=== PATIENT | male | born 1965 | race Caucasian/White ===

== ENCOUNTER 2018-04-23 20:42 | Inpatient (IN) ==
--- NOTE | 2018-04-23 22:24 | ED ---
HPI General Chief Complaint: Psychiatric Symptoms Stated Complaint: psych eval Time Seen by Provider: 04/23/18 21:15 Source: EMS and police Mode of arrival: other (Police) Limitations: other (Patient is now sound asleep) History of Present Illness MD complaint: Reports suicidal ideation Relieving factors: none Exacerbating factors: other (Illicit drugs) Context: Reports recent drug abuse Associated psychiatric symptoms: Reports suicidal ideation Treatments prior to arrival: Reports none Related Data Home Medications Medication Instructions Recorded Confirmed No Known Home Medications 04/24/18 04/24/18 Unable to Obtain Home Meds 04/24/18 04/24/18 Allergies Allergy/AdvReac Type Severity Reaction Status Date / Time gabapentin [From Neurontin] Allergy Edema, Verified 04/24/18 19:00 Localized Review of Systems ROS: all other systems reviewed are negative [facility] Social History Social History Substance History: Active Abuse Smoking Status: Current every day smoker Tobacco Type: Cigarettes How Often Do You Have a Drink Containing Alcohol: 2 to 4 times a month Exam Const General: cooperative, healthy appearing, comfortable, no acute distress and well developed Orientation: other (The patient was awake and alert on arrival but was sound asleep when I went into see him.) HENMT Head: normal to inspection, normocephalic and atraumatic Eyes Alignment and Position: alignment normal and position abnormal Conjunctivae: conjunctivae normal Sclera: sclerae normal EOM: EOM intact bilaterally Neck Neck: normal visual inspection and full ROM Chest Chest: normal inspection of the chest Resp Effort & Inspection: normal respiratory effort and able to speak in complete sentences Auscultation: clear to auscultation bilaterally Cardio Rate: regular rate Rhythm: regular rhythm GI Inspection: normal to inspection Palpation: soft Back/Spine/Pelvis Cervical Spine: cervical ROM normal Thoracic/Lumbar Spine: thoraco-lumbar ROM normal Skin General: no rashes or lesions noted, turgor normal and dry skin Neuro General: alert, awake, oriented x3, moves all extremities and CN's II-XI intact bilaterally Extrem General: normal to inspection and full ROM Psych Appearance: grossly normal Mental Status: mental status grossly normal Speech and Movement: speech and movement normal Mood: congruent mood Affect: normal affect Attitude: cooperative Thought Process: normal Thought Content: normal Judgment: judgment good Course Reevaluation(s) Reevaluation #1: This patient is still sound asleep. I have tried to arouse him to assess him for suicidal ideation. However, at is not currently possible. Time: 00:40 Reevaluation #2: Patient is reexamined now at 6:30 AM. The patient appears clinically sober. The patient states that he has been binging on methamphetamine. The patient reportedly snorts methamphetamine. He denies any other drugs. He denies any IV drug abuse. He states that he is becoming more paranoid and delusional over the past 1-2 months. He states that people are trying to control him. He alleges that people are putting wires in his body. He states that he would like to see the psychiatrist. He feels that there is something wrong. He does not feel that is related to his substance abuse. Routine laboratory tests will be sent to the lab for medical clearance. We had hoped to lift the patient's Sterling act but unfortunately the patient is unreliable and would be considered unsafe discharge. Patient also persists that if he is discharged he will wind up killing himself. Patient is very vague. Time: 06:41 Initial Documented Vital Signs Temperature 97.9 F 04/23/18 20:58 Pulse Rate 88 04/23/18 20:58 Respiratory Rate 16 04/23/18 20:58 Blood Pressure 103/67 04/23/18 20:58 Pulse Oximetry 98 04/23/18 20:58 Last Documented Vital Signs Temperature 97.6 F 04/25/18 04:53 Pulse Rate 66 04/26/18 04:46 Respiratory Rate 15 04/26/18 04:46 Blood Pressure 161/86 H 04/26/18 04:46 Pulse Oximetry 99 04/26/18 04:46 Medical Decision Making [facility] Narrative Medical decision making narrative: This patient presented to us as a Sterling Act. He has been using drugs tonight. As such, the patient is not appropriate for a Sterling Act at this point. The Sterling Act will be lifted and his suicidal ideation will be reevaluated after he is sober. Medical Screen Exam Complete: Yes Emergency Medical Condition: Yes Differential Diagnosis Differential Diagnosis: My differential diagnosis of Sterling Act includes but is not limited to malingering, acute psychosis, depression with suicidal ideation, homicidal ideation, poor education of the ambulance officer Lab Data Lab results reviewed: Yes I reviewed the patient's lab results. Result diagrams: 04/24/18 07:24 04/24/18 14:00 Lab Results 04/24/18 04/24/18 04/24/18 Range/Units 07:24 07:26 14:00 WBC 6.8 (4.0-11.0) th/mm3 RBC 4.76 (4.50-5.90) mil/mm3 Hgb 14.6 (13.0-17.0) gm/dL Hct 42.9 (39.0-51.0) % MCV 90.2 (80.0-100.0) fL MCH 30.6 (27.0-34.0) pg MCHC 34.0 (32.0-36.0) % RDW 14.4 (11.6-17.2) % Plt Count 236 (150-450) th/mm3 MPV 7.9 (7.0-11.0) fL Neut % (Auto) 45.7 (16.0-70.0) % Lymph % (Auto) 40.7 (9.0-44.0) % [place] % (Auto) 10.9 H (0.0-8.0) % Eos % (Auto) 2.5 (0.0-4.0) % Baso % (Auto) 0.2 (0.0-2.0) % Neut # (Auto) 3.1 (1.8-7.7) th/mm3 Lymph # (Auto) 2.8 (1.0-4.8) th/mm3 [place] # (Auto) 0.7 (0.0-0.9) th/mm3 Eos # (Auto) 0.2 (0.0-0.4) th/mm3 Baso # (Auto) 0.0 (0.0-0.2) th/mm3 WBC Differential . Differential Comment Auto diff final Sodium 142 (136-145) meq/L Potassium 3.6 (3.5-5.1) meq/L Chloride 108 H (98-107) meq/L Carbon Dioxide 27.8 (21.0-32.0) meq/L Anion Gap 6 (5-15) meq/L BUN 13 (7-18) mg/dL Creatinine 1.04 (0.60-1.30) mg/dL Estimated GFR 74 L (>89) mL/min Random Glucose 102 (74-106) mg/dL Calcium 9.1 (8.5-10.1) mg/dL Magnesium 2.2 (1.5-2.5) mg/dL Total Bilirubin 0.2 (0.2-1.0) mg/dL AST 27 (15-37) U/L ALT 40 (12-78) U/L Alkaline Phosphatase 88 (45-117) U/L Total Protein 7.2 (6.4-8.2) g/dL Albumin 3.6 (3.4-5.0) g/dL TSH 2.010 (0.358-3.740) uIU/mL Urine Opiates Screen Neg (Neg) Ur Barbiturates Screen Neg (Neg) Ur Amphetamines Screen Pos H (Neg) U Benzodiazepines Scrn Pos H (Neg) Urine Cocaine Screen Pos H (Neg) U Cannabinoids Screen Neg (Neg) Serum Alcohol Less than 3 (0-5) mg/dL Discharge Plan Discharge Disposition Patient Disposition: 30 Still Patient Discharge Details Diagnosis: Medical clearance for psychiatric admission Physicians Team ED Provider: Wendy Ritter Primary Care Provider: UNKNOWN, Rxs /Orders / Referrals /Forms Prescriptions: No Action Unable to Obtain Home Meds RF: 0 No Known Home Medications RF: 0 Discharge Interventions Interventions: Vital Signs Last Done: 04/26/18 04:46 Status ED Status: Medically Cleared
[2018-04-24] MEDS ORDERED: LORazepam 1 MG Tablet PO ONE ×2 (07:35→15:21)
[2018-04-24 07:37] LABS: Baso % (Auto) 0.2 % (0.0-2.0); Eos # (Auto) 0.2 th/mm3 (0.0-0.4); Eos % (Auto) 2.5 % (0.0-4.0); Hematocrit 42.9 % (39.0-51.0); Hemoglobin 14.6 gm/dL (13.0-17.0); Lymph # (Auto) 2.8 th/mm3 (1.0-4.8); Lymph % (Auto) 40.7 % (9.0-44.0); Mean Corpuscular Hemoglobin 30.6 pg (27.0-34.0); Mean Corpuscular Volume 90.2 fL (80.0-100.0); Mean Platelet Volume 7.9 fL (7.0-11.0); Mono # (Auto) 0.7 th/mm3 (0.0-0.9); Mono % (Auto) 10.9 % (0.0-8.0); Neut # (Auto) 3.1 th/mm3 (1.8-7.7); Neut % (Auto) 45.7 % (16.0-70.0); Platelet Count 236 th/mm3 (150-450); Red Blood Count 4.76 mil/mm3 (4.50-5.90); Red Cell Distribution Width 14.4 % (11.6-17.2); White Blood Count 6.8 th/mm3 (4.0-11.0)
[2018-04-24 07:46] LABS: Amphetamine Screen,Urine Pos (Neg); Barbiturate Screen,Urine Neg (Neg); Cannabinoid Screen,Urine Neg (Neg); Cocaine Screen,Urine Pos (Neg)
[2018-04-24 07:47] LABS: Opiate Screen,Urine Neg (Neg)
[2018-04-24 14:44] LABS: Alkaline Phosphatase 88 U/L (45-117); Total Protein 7.2 g/dL (6.4-8.2)
[2018-04-24 15:21] LABS: Alanine Aminotransferase 40 U/L (12-78); Albumin 3.6 g/dL (3.4-5.0); Anion Gap 6 meq/L (5-15); Aspartate Aminotransferase 27 U/L (15-37); Blood Urea Nitrogen 13 mg/dL (7-18); Calcium 9.1 mg/dL (8.5-10.1); Carbon Dioxide 27.8 meq/L (21.0-32.0); Chloride 108 meq/L (98-107); Glomerular Filtration Rate 74 mL/min (>89); Glucose,Random 102 mg/dL (74-106); Magnesium 2.2 mg/dL (1.5-2.5); Potassium 3.6 meq/L (3.5-5.1); Sodium 142 meq/L (136-145)
[2018-04-24] MEDS ORDERED: Haloperidol Inj 5 MG/ML Ampul IM ONE (18:13)
[2018-04-25] MEDS ORDERED: Haloperidol 5 MG Tablet PO ONE (08:17)
--- NOTE | 2018-04-25 13:31 | P.CONPSY ---
Provisional Diagnosis Admission Date: April 23, 2018 20:42 Hal[place] I.: Polysubstance dependence, substance-induced psychosis, history of anxiety Hal[place] II.: Deferred History of Present Illness Service: ER Primary Care Provider: UNKNOWN History of Present Illness: The patient is a 52-year-old man, who is homeless, but , unemployed, with reported psychiatric history of anxiety, depression , polysubstance dependence including alcohol, methamphetamines, cocaine, he is on Xanax 1 mg 3 times daily prescribed by PCP, 1 previous psychiatric hospitalization due to substance-induced psychosis, he denies previous suicidal attempts, no significant medical history, who was brought to the hospital on the Sterling act due to auditory hallucinations and paranoia after using cocaine and methamphetamines. Chart was reviewed. Of psychiatric evaluation the patient seems to be distressed, stating that he has been seeing things, thinking that people are following him, also seen bugs crawling his skin. The patient reports that he has been having a very difficult situation with the paranoia and visual hallucinations created by the drug use and for this reason he is looking forward to getting a detox/rehab to treat his addiction. The patient denies suicidal and was ideation, he denies visual and auditory hallucinations at this moment. He reports anxiety and bilateral tremors that could be related with withdrawal PMFSH - History History Provided By: Patient - Tobacco History Tobacco Use In Past 30 Days: Yes Smoking Status: Current every day smoker Tobacco Type: Cigarettes - Alcohol History How Often Do You Have a Drink Containing Alcohol: 2 to 4 times a month - Substance Use History Substance History: Active Abuse - Substance Use Type Methamphetamine Status: Active Route Used: Inhalation Frequency: several times/week Last Used: yesterday Reason for Use: Feels Good, Get High Crack/Cocaine Status: Active Route Used: Inhalation Frequency: "occasionally" Reason for Use: Get High Alcohol Status: Active Route Used: By Mouth Frequency: 3-4 beers daily Reason for Use: Calm Down, Feels Good - Immunization History Tetanus Immunization: Unsure Medications and Allergies Allergies Allergy/AdvReac Type Severity Reaction Status Date / Time gabapentin [From Neurontin] Allergy Edema, Verified 04/24/18 19:00 Localized Home Medications Medication Instructions Recorded Confirmed Type No Known Home Medications 04/24/18 04/24/18 History Unable to Obtain Home Meds 04/24/18 04/24/18 History Exam Vital signs: Vital Signs 04/24/18 18:14 04/24/18 22:31 04/25/18 04:53 Temperature 97.8 F 98.4 F 97.6 F Pulse Rate 77 68 62 Respiratory Rate 18 18 14 Blood Pressure 144/101 H 149/79 H 134/82 Pulse Oximetry 100 96 95 Mental Status Examination Appearance: Appropriate Consciousness: Alert Orientation: x4 Motor Activity: Normal gait Speech: Unremarkable Language: Adequate Fund of Knowledge: Adequate Attention and Concentration: Adequate Memory: Unremarkable Mood: Appropriate Affect: Appropriate Thought Process & Associations: Intact Thought Content: Appropriate Hallucination Type: None Delusion Type: None Suicidal Ideation: No Suicidal Plan: No Suicidal Intention: No Homicidal Ideation: No Homicidal Plan: No Homicidal Intention: No Insight: Adequate Judgment: Adequate Assessment and Plan - Plan Plan: To be transferred to [facility]. Justification for Continued Inpatient Stay: Patient presents with symptoms of psychosis, paranoia, visual hallucinations, formication in the context of daily use of methamphetamines, alcohol and cocaine. Patient also reports bilateral tremors, anxiety, discomfort that could be related with withdrawal of alcohol and Xanax. The patient will be admitted in [facility], for detox and rehabilitation, he is #2 in the least. Will order CIWA. Will order Haldol 5 mg and Ativan 2 mg now.
[2018-04-25] MEDS ORDERED: Haloperidol Inj 5 MG/ML Ampul IM PRN (16:39)
[2018-04-25] MEDS: LORazepam 1 MG Tablet PO PRN (16:56)
[2018-04-25] MEDS: Haloperidol 5 MG Tablet PO PRN (16:57)
[2018-04-26] MEDS ORDERED: Acetaminophen 325 MG Tablet PO PRN (08:11)
[2018-04-26] MEDS ORDERED: Bisacodyl 10 MG Supp RECTAL PRN (08:11)
[2018-04-26] MEDS ORDERED: Aluminum/Magnesium/Simethacone Susp 30 ML UDC PO PRN (08:11)
[2018-04-26] MEDS: Haloperidol 5 MG Tablet PO PRN (08:22)
--- NOTE | 2018-04-26 08:53 | ED ---
HPI General Chief complaint: Psychiatric Symptoms Stated complaint: psych eval Time Seen by Provider: 04/23/18 21:15 Source: patient, EMS and police Mode of arrival: ambulatory (Police) Limitations: no limitations and other (Patient is now sound asleep) History of Present Illness HPI Narrative: This is a 52-year-old male that is here in the psychiatry unit and is being admitted to psychiatry. He has already been seen and previously evaluated by an alternate provider and was medically cleared for psychiatry. The patient is complaining of right hand pain. He did previously have an IV in his right hand,. He denies any injury. Denies paresthesias, loss of sensation , decreased range of motion, decreased strength to the affected hand. Says he noted swelling of his hand after the IV and is only gotten worse. This morning he woke up with the pain. No treatments tried. Constantly aggravated. No known relieving factors. Symptoms are mild in severity. Related Data Home Medications Medication Instructions Recorded Confirmed No Known Home Medications 04/24/18 04/24/18 Unable to Obtain Home Meds 04/24/18 04/24/18 Allergies Allergy/AdvReac Type Severity Reaction Status Date / Time gabapentin [From Neurontin] Allergy Edema, Verified 04/24/18 19:00 Localized Review of Systems ROS: all other systems reviewed are negative PMFSH Social History Social History Substance History: Active Abuse Smoking Status: Current every day smoker Tobacco Type: Cigarettes How Often Do You Have a Drink Containing Alcohol: 2 to 4 times a month Substance Abuse Detail Methamphetamine: Substance Use Status: Active Route Used Substance Abuse: Inhalation Substance Frequency: several times/week Last Used: yesterday Reason for Use: Feels Good and Get High Crack/Cocaine: Substance Use Status: Active Route Used Substance Abuse: Inhalation Substance Frequency: "occasionally" Reason for Use: Get High Alcohol: Substance Use Status: Active Route Used Substance Abuse: By Mouth Substance Frequency: 3-4 beers daily Reason for Use: Calm Down and Feels Good Immunization History Tetanus Immunization: Unsure Exam Narrative Exam Narrative: GENERAL: Well-nourished, well-developed male patient, in no acute distress SKIN: Warm and dry. Multiple small scabbed wounds noted to bilateral upper extremities; I was told by the nurse the patient continues to pick his skin; no signs of infection noted. No cellulitic process noted. HEAD: Atraumatic. Normocephalic. EYES: Pupils equal and round. No scleral icterus. No injection or drainage. ENT: Mucosa pink and moist. Airway patent. NECK: Trachea midline. CARDIOVASCULAR: Regular rate. RESPIRATORY: No accessory muscle use. GASTROINTESTINAL: Obese. MUSCULOSKELETAL: Right hand is mildly edematous and without erythema, ecchymosis; with tenderness on palpation to the metacarpal region; no signs of infection; all fingers are pink and warm and with good cap refill and sensory intact; 2+ radial pulse; all fingers with full flexion and extension. Right upper extremity is supple and non-tense with 2+ radial pulse and sensory intact without erythema or edema. No obvious deformities. No clubbing. No cyanosis. NEUROLOGICAL: Awake and alert. Oriented 3. No obvious cranial nerve deficits. Motor grossly within normal limits. Normal speech. PSYCHIATRIC: Appropriate mood and affect; insight and judgment normal. Course Initial Documented Vital Signs Temperature 97.9 F 04/23/18 20:58 Pulse Rate 88 04/23/18 20:58 Respiratory Rate 16 04/23/18 20:58 Blood Pressure 103/67 04/23/18 20:58 Pulse Oximetry 98 04/23/18 20:58 Last Documented Vital Signs Temperature 97.6 F 04/25/18 04:53 Pulse Rate 66 04/26/18 04:46 Respiratory Rate 15 04/26/18 04:46 Blood Pressure 161/86 H 04/26/18 04:46 Pulse Oximetry 99 04/26/18 04:46 Medical Decision Making [facility] Narrative Medical decision making narrative: This is a patient in the psychiatry unit that is being admitted to psychiatry. He is complaining of right hand pain. No injury. He did previously have an IV in the right hand and I am suspecting that it is just inflammation post IV, possible infiltration. There are no signs of infection. No cellulitic process. Patient is demanding an x-ray although I explained that I did not feel an x-ray was necessary secondary to no injury, but he insists. I will x-ray the hand per the patient's request and to rule out any acute findings. Ibuprofen and right hand x-ray ordered. Right hand x-ray concludes: Dorsal soft tissue edema without evidence of fracture or foreign body. Findings are concerning for a tenosynovitis or possible cellulitis. On exam I do not feel that there was any infectious process but with findings of concern for tenosynovitis and possible cellulitis on x-ray I will treat the patient with antibiotics. Bactrim and Keflex ordered. I called and spoke with the psychiatric nurse, because the patient has already been admitted, and informed the nurse caring for the patient at this time that the patient needed to be sent home with prescriptions if discharged prior to 10 days of antibiotic therapy. Medical Screen Exam Complete: Yes Emergency Medical Condition: Yes Differential Diagnosis Differential Diagnosis: Soft tissue inflammation, cellulitis, nonspecific hand pain Lab Data Result diagrams: 04/24/18 07:24 04/24/18 14:00 Lab Results 04/24/18 04/24/18 04/24/18 Range/Units 07:24 07:26 14:00 WBC 6.8 (4.0-11.0) th/mm3 RBC 4.76 (4.50-5.90) mil/mm3 Hgb 14.6 (13.0-17.0) gm/dL Hct 42.9 (39.0-51.0) % MCV 90.2 (80.0-100.0) fL MCH 30.6 (27.0-34.0) pg MCHC 34.0 (32.0-36.0) % RDW 14.4 (11.6-17.2) % Plt Count 236 (150-450) th/mm3 MPV 7.9 (7.0-11.0) fL Neut % (Auto) 45.7 (16.0-70.0) % Lymph % (Auto) 40.7 (9.0-44.0) % [place] % (Auto) 10.9 H (0.0-8.0) % Eos % (Auto) 2.5 (0.0-4.0) % Baso % (Auto) 0.2 (0.0-2.0) % Neut # (Auto) 3.1 (1.8-7.7) th/mm3 Lymph # (Auto) 2.8 (1.0-4.8) th/mm3 [place] # (Auto) 0.7 (0.0-0.9) th/mm3 Eos # (Auto) 0.2 (0.0-0.4) th/mm3 Baso # (Auto) 0.0 (0.0-0.2) th/mm3 WBC Differential . Differential Comment Auto diff final Sodium 142 (136-145) meq/L Potassium 3.6 (3.5-5.1) meq/L Chloride 108 H (98-107) meq/L Carbon Dioxide 27.8 (21.0-32.0) meq/L Anion Gap 6 (5-15) meq/L BUN 13 (7-18) mg/dL Creatinine 1.04 (0.60-1.30) mg/dL Estimated GFR 74 L (>89) mL/min Random Glucose 102 (74-106) mg/dL Calcium 9.1 (8.5-10.1) mg/dL Magnesium 2.2 (1.5-2.5) mg/dL Total Bilirubin 0.2 (0.2-1.0) mg/dL AST 27 (15-37) U/L ALT 40 (12-78) U/L Alkaline Phosphatase 88 (45-117) U/L Total Protein 7.2 (6.4-8.2) g/dL Albumin 3.6 (3.4-5.0) g/dL TSH 2.010 (0.358-3.740) uIU/mL Urine Opiates Screen Neg (Neg) Ur Barbiturates Screen Neg (Neg) Ur Amphetamines Screen Pos H (Neg) U Benzodiazepines Scrn Pos H (Neg) Urine Cocaine Screen Pos H (Neg) U Cannabinoids Screen Neg (Neg) Serum Alcohol Less than 3 (0-5) mg/dL Imaging Data Radiologist's impression: Hand X-Ray 04/26/18 08:47 CONCLUSION: Dorsal soft tissue edema without evidence of fracture or foreign body. Findings are concerning for a tenosynovitis or possible cellulitis. Discharge Plan Discharge Disposition Patient Disposition: 30 Still Patient Discharge Details Diagnosis: Medical clearance for psychiatric admission, Hand pain, right, Swelling of right hand Physicians Team ED Provider: Wendy Ritter Primary Care Provider: UNKNOWN, Attending Provider: Matthew Ayala Discharge Interventions Interventions: ED Discharge Assessment Last Done: 04/26/18 10:25 Vital Signs Last Done: 04/26/18 04:46 Status ED Status: Left Department Discharge Information Discharge Date/Time: 04/26/18 10:30
[2018-04-26] MEDS: Haloperidol 5 MG Tablet PO SCH ×2 (09:12→22:46)
[2018-04-26] MEDS: LORazepam 1 MG Tablet PO PRN ×3 (09:27→20:40)
--- NOTE | 2018-04-26 11:52 | XR ---
EXAM DATE: 04/26/2018 9:34 AM EST AGE/SEX: 52 years / Male INDICATIONS: Right hand pain and swelling with no known injury. CLINICAL DATA: This is the patient's initial encounter. Patient reports that signs and symptoms have been present for 3 days and indicates a pain score of 8/10. MEDICAL/SURGICAL HISTORY: . Previous right wrist fracture. None. COMPARISON: No prior exams available for comparison. FINDINGS: 3 views of the right hand demonstrate an old healed fracture deformity involving the distal radius an d nonunited ulnar styloid fracture. The osseous structures are otherwise intact with normal alignment . Soft tissues are significant for dorsal soft tissue edema overlying the level of the metacarpals. N o evidence of radiopaque foreign body. CONCLUSION: Dorsal soft tissue edema without evidence of fracture or foreign body. Findings are concerning for a tenosynovitis or possible cellulitis. Electronically signed by: Lucita Calabrese MD 04/26/2018 11:51 AM EST
--- NOTE | 2018-04-26 11:54 | P.PNPSY ---
Subjective Remarks: Patient is a 52-year-old man, homeless, but , unemployed, with reported psychiatric history of anxiety, depression, polysubstance dependence including alcohol, methamphetamines, cocaine, he is on Xanax 1 mg 3 times daily prescribed by PCP, 1 previous psychiatric hospitalization due to substance-induced psychosis, he denies previous suicidal attempts, no significant medical history, who was brought to the hospital on the [place] act due to auditory hallucinations and paranoia after using cocaine and methamphetamines. As per chart and initial psychiatric evaluation in the ED as noted by Dr. Rivera: Patient seems to be distressed, stating that he has been seeing things, thinking that people are following him, also seen bugs crawling his skin. The patient reports that he has been having a very difficult situation with the paranoia and visual hallucinations created by the drug use and for this reason he is looking forward to getting a detox/rehab to treat his addiction. The patient denies suicidal and was ideation, he denies visual and auditory hallucinations at this moment. He reports anxiety and bilateral tremors that could be related with withdrawal. Patient was given Haldol 5 mg p.o. x1 which helped decrease some of the perceptional disturbances or delusions. Patient was also continued noted to be picking at his skin as well as having pulled fingernail snf out being concordance with his delusions of there being "crystals" under his fingernails. Patient was noted to be pacing noted to be anxious requesting and demanding for benzodiazepines. Patient to be guarded, with limited cooperation during interview. Patient continued to be noted to be somewhat disorganized and paranoid. Review of Systems All other systems reviewed negative except as stated in HPI Mental Status Examination Appearance: Appropriate Consciousness: Alert Orientation: x4 Motor Activity: Normal gait Speech: Unremarkable Language: Adequate Fund of Knowledge: Adequate Attention and Concentration: Adequate Memory: Unremarkable Mood: Irritable Affect: Blunt Thought Process & Associations: Intact, Disorganized Thought Content: Hallucinations Hallucination Type: Tactile Delusion Type: Bizarre, Paranoid Suicidal Ideation: No Suicidal Plan: No Suicidal Intention: No Homicidal Ideation: No Homicidal Plan: No Homicidal Intention: No Insight: Adequate Judgment: Adequate Assessment and Plan - Assessment (1) Unspecified psychosis Code(s): F29 - Unspecified psychosis not due to a substance or known physiological condition Status: Acute (2) Substance-induced psychotic disorder Code(s): F19.959 - Other psychoactive substance use, unspecified with psychoactive substance-induced psychotic disorder, unspecified Status: Acute (3) Polysubstance abuse Code(s): F19.10 - Other psychoactive substance abuse, uncomplicated Status: Acute - Plan Plan: Patient is a 52-year-old man who carries a diagnosis of polysubstance use disorder, substance use psychotic disorder with no previous psychiatric admissions, who was admitted to the ED under Sterling act due to paranoid delusions , visual and tactile hallucinations bizarre delusions which patient continues to endorse and requires inpatient psychiatric stabilization. Patient likely will benefit from referral to rehabilitation program after psychiatric stabilization. We will start patient on Haldol 5 mg p.o. twice daily with upper titration as needed for psychosis. Patient will be admitted under involuntary hospitalization, second opinion will be requested. We will continue to monitor mood and behavior. Discharge planning a progress. Justification for Continued Inpatient Stay: At risk of further decompensation at lower level care.
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
[2018-04-26] MEDS: Senna/Docusate Sodium 8.6/50 MG Tablet PO SCH ×2 (20:26→22:46)
[2018-04-27] MEDS: Haloperidol 5 MG Tablet PO SCH ×2 (08:31→20:20)
[2018-04-27] MEDS: Senna/Docusate Sodium 8.6/50 MG Tablet PO SCH ×2 (08:31→20:19)
[2018-04-27] MEDS: LORazepam 1 MG Tablet PO PRN ×4 (08:53→20:19)
[2018-04-27 09:08] LABS: Calcium 8.6 mg/dL (8.5-10.1); Carbon Dioxide 24.2 meq/L (21.0-32.0); Potassium 4.2 meq/L (3.5-5.1)
[2018-04-27 09:12] LABS: Chol/HDL Ratio 3.27 Ratio; HDL Cholesterol 50.1 mg/dL (40.0-60.0)
[2018-04-27 12:22] LABS: Hemoglobin A1c 5.7 % (4.3-6.0)
--- NOTE | 2018-04-27 15:49 | P.PNPSY ---
Subjective Remarks: Pt seen and discussed with staff. Pt was transferred to [address] unit without incident. Paranoia has decreased and pt has been taking medication. He states that he and parents have been calling rehabs and sober living facilities for substance abuse treatment after he leaves. He reports that R hand edema has decreased further today and he denies pain or discomfort. Full range of motion. He is tolerating antibiotics without side effects and understands that he must complete full course of treatment and f/u with PCP. No SI/HI. Pt states that he is agreeable to remain n hospital. Mental Status Examination Appearance: Appropriate Consciousness: Alert Orientation: x4 Motor Activity: Normal gait Speech: Unremarkable Language: Adequate Fund of Knowledge: Adequate Attention and Concentration: Adequate Memory: Unremarkable Mood: Appropriate Affect: Blunt Thought Process & Associations: Intact Thought Content: Appropriate Hallucination Type: None, Tactile Delusion Type: Paranoid (decreasd) Suicidal Ideation: No Suicidal Plan: No Suicidal Intention: No Homicidal Ideation: No Homicidal Plan: No Homicidal Intention: No Insight: Adequate Judgment: Adequate Assessment and Plan - Assessment (1) Unspecified psychosis Code(s): F29 - Unspecified psychosis not due to a substance or known physiological condition Status: Acute (2) Substance-induced psychotic disorder Code(s): F19.959 - Other psychoactive substance use, unspecified with psychoactive substance-induced psychotic disorder, unspecified Status: Acute (3) Polysubstance abuse Code(s): F19.10 - Other psychoactive substance abuse, uncomplicated Status: Acute - Plan Plan: Pt is improving. Continue current tx plan. As pt has capacity and is agreeable for hospitalization, will allow him to sign for voluntary admission. Justification for Continued Inpatient Stay: risk of decompensation
--- NOTE | 2018-04-27 16:02 | ECG ---
Date Performed: 04/27/2018 Time Performed: 10:31:12 PTAGE: 52 years EKG: Sinus rhythm NORMAL ECG NO PREVIOUS TRACING DOCTOR: Dustin Aguilar Interpretating Date/Time 04/27/2018 16:01:24
[2018-04-28 06:04] VITALS: BP 122/70; PULSE 59; RESP 16; TEMP 97.5; O2SAT 95
[2018-04-28] MEDS: Haloperidol 5 MG Tablet PO SCH (08:09)
[2018-04-28] MEDS: Senna/Docusate Sodium 8.6/50 MG Tablet PO SCH (08:09)
[2018-04-28] MEDS: LORazepam 1 MG Tablet PO PRN ×2 (08:10→12:07)
--- NOTE | 2018-04-28 13:20 | P.TTN ---
- Patient Problems Problems: 1. Discharge planning 2. Medication compliance 3. Knowledge deficit 4. Lack of coping skills - Progress Toward Goals Provider Present: Dr. Rodríguez Charles, Dr. Abel Ayala Provider Input: 04/28: Pt is new; will assess him today; he is going to need rehab for substance abuse; possibly [facility] or [facility] Arianna Nurse(s) Present: Chantel Nurse Input: 04/28: Pt is compliant; med seeking Psychiatric Counselors Present: Uriah Ramirez Jr., [facility], Gerri Antonio, [facility] Psychiatric Therapist Input: 04/28: will asses to see if pt is motivated for rehab Group Spec/RT/OT/RAY Present: FLOR Coronel, Jonas Montemayor, OT Group Spec/RT/OT/RAY Input: 04/28: Pt attends and particpates in select groups appropriately - Discharge Plan 04/28: Discharge planning in progress to rehab facility for substance use; candidate for [facility] or [facility] Arianna - Documentation Teaching Recipient: Patient
--- NOTE | 2018-04-28 13:45 | P.DSPSY ---
Psychiatry Discharge Summary Inpatient Psychiatric care?: Yes Advance Directives: No Mental Health Advance Directive: No Health Care Proxy: No - Admission Admission Date: April 26, 2018 08:10 - Admission Diagnosis (1) Substance-induced psychotic disorder Code(s): F19.959 - Other psychoactive substance use, unspecified with psychoactive substance-induced psychotic disorder, unspecified (2) Unspecified psychosis Code(s): F29 - Unspecified psychosis not due to a substance or known physiological condition (3) Polysubstance abuse Code(s): F19.10 - Other psychoactive substance abuse, uncomplicated Brief History: None done Tobacco Use In Past 30 Days: No How Often Do You Have a Drink Containing Alcohol: Monthly or less Hospital Course: Patient seen in his room with nurse Meagan and medical student history of chart reviewed, patient compliant medication. Patient alert oriented calm cooperative says he is feeling much better. States he was just partying and was level along by his "friends". He denies suicidality homicidality voices or visions. He does state he has a and wants [place] and 4 children up there who are all younger. He also has an ex- and 4 adult children. In any event his parents are down here they have helped him to find a sober living facility called [facility]. It appears a bit may be available for him there. Thus patient will be discharged today to his family Rx times 1 month to follow-up [facility] act, also follow-up with [facility] - Discharge Discharge Date: 04/28/18 - Discharge Diagnosis (1) Substance-induced psychotic disorder Diagnosis: Secondary Code(s): F19.959 - Other psychoactive substance use, unspecified with psychoactive substance-induced psychotic disorder, unspecified Status: Acute (2) Unspecified psychosis Diagnosis: Principal Code(s): F29 - Unspecified psychosis not due to a substance or known physiological condition Status: Acute (3) Polysubstance abuse Diagnosis: Secondary Code(s): F19.10 - Other psychoactive substance abuse, uncomplicated Status: Acute Discharge Disposition: Home - Discharge Instructions Discharge Diet: Regular Diet Activities You Can Perform: Regular- No Restrictions - Discharge Time > 30 minutes Mental Status Examination Appearance: Appropriate Consciousness: Alert Orientation: x4 Motor Activity: Normal gait Speech: Unremarkable Language: Adequate Fund of Knowledge: Adequate Attention and Concentration: Adequate Memory: Unremarkable Mood: Appropriate Affect: Blunt Thought Process & Associations: Intact Thought Content: Appropriate Hallucination Type: None, Tactile Delusion Type: Paranoid (decreasd) Suicidal Ideation: No Suicidal Plan: No Suicidal Intention: No Homicidal Ideation: No Homicidal Plan: No Homicidal Intention: No Insight: Adequate Judgment: Adequate Discharge/Advance Care Plan - Results Vital Signs: Last Vital Signs Temp 97.5 F L 04/28/18 06:03 Pulse 59 L 04/28/18 06:03 Resp 16 04/28/18 06:03 BP 122/70 04/28/18 06:03 Pulse Ox 95 04/28/18 06:03 Lab Results: Laboratory Results Hemoglobin A1c 5.7 % (4.3-6.0) 04/27/18 08:05 Triglycerides 118 mg/dL (42-150) 04/27/18 08:05 Cholesterol 164 mg/dL (120-200) 04/27/18 08:05 LDL Cholesterol, Calc 90 mg/dL (0-99) 04/27/18 08:05 HDL Cholesterol 50.1 mg/dL (40.0-60.0) 04/27/18 08:05 TSH 2.010 uIU/mL (0.358-3.740) 04/24/18 14:00 Summary of Procedures: None done Imaging: ITS Impressions Hand X-Ray 04/26/18 08:47 CONCLUSION: Dorsal soft tissue edema without evidence of fracture or foreign body. Findings are concerning for a tenosynovitis or possible cellulitis. Pending Results: None - Medications Number of antipsychotic medications at discharge: 1 - Discharge Care Plan Goals to Promote Your Health: * To prevent worsening of your condition and complications * To maintain your health at the optimal level Directions to Meet Your Goals: Take your medications as prescribed Follow your dietary instruction Follow activity as directed Keep your appointments as scheduled Take your immunizations and boosters as scheduled If your symptoms worsen call your PCP, if no PCP go to Urgent Care Center or Emergency Room For 31/12 questions related to your inpatient stay or results of tests pending at discharge, please contact Dr. Gadiel Charles MD at Smoking is Dangerous to Your Health. Avoid second hand smoking (2) Unspecified psychosis Qualifiers: Psychosis type: brief psychotic disorder Qualified Code(s): F23 - Brief psychotic disorder
== END 2018-04-28 14:55 | disposition home or self-care (01) ==
LOC: NEPD 20:42 → NEDA 04-26 08:10 → H270 04-26 10:30 → H260 04-27 09:09
PROVIDERS: ADMIT Student in an Organized Health Care Education/Training Program; ATTEND Student in an Organized Health Care Education/Training Program